=== PATIENT | male | born 2000 | race Two or more races ===

== ENCOUNTER 2025-06-30 05:47 | Emergency (ER) | payer SELFPAY ==
[~2025-06-30] VITALS: Ht 185.4 cm; Wt 104.3 kg
[2025-06-30 06:51] VITALS: BP 132/87; TEMP 98.3; O2SAT 96
[2025-06-30] MEDS ORDERED: KETOROLAC TROMETHAMINE INJ 30 MG/ML VIAL ONE (07:09)
[2025-06-30] MEDS: KETOROLAC TROMETHAMINE INJ 30 MG/ML VIAL IM ONE (07:11)
[2025-06-30] MEDS ORDERED: PRED50TA PO (08:47)
== END 2025-06-30 09:05 | disposition home or self-care (01) ==
LOC: ER 05:58
DX: M54.50 Low back pain, unspecified (principal); F17.200 Nicotine dependence, unspecified, uncomplicated
CPT/HCPCS: 99285; 72131; 96372; J1885